=== PATIENT | male | born 1985 | race African-American/Black ===

== ENCOUNTER 2023-05-14 18:40 | Emergency (ER) | payer MEDICAID ==
[2023-05-14] MEDS: Ibuprofen 400 MG Tab PO ONE (20:10)
== END 2023-05-14 21:42 | disposition home or self-care (01) ==
LOC: JD.ED 18:40
DX: M25.562 Pain in left knee (principal); E11.9 Type 2 diabetes mellitus without complications; E78.00 Pure hypercholesterolemia, unspecified; I10 Essential (primary) hypertension; Z79.4 Long term (current) use of insulin; Z79.84 Long term (current) use of oral hypoglycemic drugs; Z79.82 Long term (current) use of aspirin; Z79.899 Other long term (current) drug therapy
CPT/HCPCS: 73562; 99283; A9270